=== PATIENT | male | born 1965 | race Caucasian/White ===

== ENCOUNTER 2019-02-19 07:58 | Emergency (ER) | payer SELFPAY ==
[~2019-02-19] VITALS: Ht 177.8 cm; Wt 79.5 kg
[2019-02-19] MEDS ORDERED: KETOROLAC 30 MG INJ IM STA (08:07)
[2019-02-19 08:17] VITALS: Ht 177.8 cm; Wt 79.5 kg
--- NOTE | 2019-02-19 08:17 | ERD ---
ER Documentation Chief Complaint Chief Complaint HPI This is a pleasant 53-year-old male presents for evaluation of head and neck trauma. He states that he was working on top of his car, and fell backwards, he did not suffer any abrasions or lacerations. Endorses pain diffusely over his occiput, and his neck. He denies any weakness, he has not had any numbness. He denies thoracic or lumbar back pain, no abdominal pain or chest pain. He did not suffer any other trauma. He did not suffer any loss of consciousness. ROS All systems reviewed and are negative except as per history of present illness. Allergies Allergies: Coded Allergies: No Known Allergy (Unverified , 02/19/19) Physical Exam Vitals Vital Signs Date Temp Pulse Resp B/P (MAP) Pulse Ox O2 O2 Flow FiO2 Time Delivery Rate 02/19/19 98.6 86 19 134/83 100 08:17 (100) Physical Exam Const: No acute distress Head: Atraumatic Eyes: Normal Conjunctiva ENT: Normal External Ears, Nose and Mouth. Neck: There is minimal midline tenderness over C2, there is no step-off, there is pain along the occiput. Resp: Clear to auscultation bilaterally, no wheezes rales rhonchi Cardio: Regular rate and rhythm, no murmurs Abd: Soft, non tender, non distended. Normal bowel sounds Skin: No petechiae or rashes Back: No midline or flank tenderness Ext: No cyanosis, or edema. No tenderness over the upper or lower extremity, full range of motion of all extremities, no abrasions or lacerations, pulses intact distally Neur: Awake and alert, cranial nerves II 12 intact, strength 5 out of 5 in all extremities. Psych: Normal Mood and Affect Results 24 hrs Current Medications Medications Dose Sig/Tip Start Time Status Last (Trade) Ordered Route PRN Stop Time Admin Dose Reason Admin Ketorolac 30 mg ONCE STAT 02/19/19 DC 02/19/19 Tromethamine IM 08:07 08:13 (Toradol) 02/19/19 08:08 Procedures/MDM 53-year-old male presents for evaluation of mechanical fall, from car approximately 6 to 7 feet. He has mild C-spine tenderness on exam, no palpable deformities, plan for CT brain and C-spine and will reassess. 90 2 AM: CT brain and C-spine show no acute injuries, patient remains neurovascularly intact, at this point I feel patient stable for discharge home, return precautions were given for any weakness, worsening pain or any other concerns at discharge she was in no distress. Departure Diagnosis: Primary Impression: Fall Encounter type: initial encounter Qualified Codes: W19.XXXA - Unspecified fall, initial encounter Condition: Stable CHAYO BLACKMAN MD Feb 19, 2019 08:17
[2019-02-19] MEDS ORDERED: IBUP-1542 PO (09:03)
[2019-02-19 09:32] VITALS: BP 128/78; PULSE 65; RESP 16
== END 2019-02-19 09:35 | disposition home or self-care (01) ==
LOC: E/R 07:58
DX: S50.02XA Contusion of left elbow, initial encounter (principal); W17.89XA Other fall from one level to another, initial encounter; Y92.9 Unspecified place or not applicable
CPT/HCPCS: 70450; 72125; 96372; 99285; J1885